=== PATIENT | female | born 1930 | race African-American/Black ===

== ENCOUNTER → 2019-03-12 | Outpatient (CLI) | payer MEDICARE, OTHER ==
[~2019-03-12] MED LIST: ALPR0.25 PO; AMLO1TAB39 PO; ASPI-1393 PO; IBUP-2030 PO; ZOLP5TAB2 PO
== END | disposition home or self-care (01) ==
LOC: RAD 09:31
PROVIDERS: ATTEND Surgery
DX: N63.10 Unspecified lump in the right breast, unspecified quadrant (principal); N60.31 Fibrosclerosis of right breast; Z79.899 Other long term (current) drug therapy; Z79.82 Long term (current) use of aspirin; Z88.2 Allergy status to sulfonamides; Z88.5 Allergy status to narcotic agent; Z88.8 Allergy status to other drugs, medicaments and biological substances; Z82.49 Family history of ischemic heart disease and other diseases of the circulatory system
CPT/HCPCS: 19083; 88305